=== PATIENT | male | born 1980 | race Caucasian/White ===

== ENCOUNTER 2019-03-20 11:22 | Emergency (ER) | payer OTHER | END 2019-03-20 13:15 | disposition home or self-care (01) | LOC: FER 11:22 ==

== ENCOUNTER 2023-09-25 12:53 | Emergency (ER) | payer OTHER ==
[2023-09-25 13:02] VITALS: RESP 16; BMI 29.0
[2023-09-25] MEDS ORDERED: guaiFENesin 200 MG/10 ML 10 ML UNIT-DOSE CUPS PO ONE (13:19)
[2023-09-25] MEDS ORDERED: IBUPROFEN 600 MG TABLET (FP) PO ONE ×2 (13:19→13:33)
[2023-09-25] MEDS ORDERED: guaiFENesin/D-METHORPHAN HB 10 ML UNIT-DOSE CUPS ONE (13:33)
[2023-09-25 14:18] VITALS: BP 127/83; PULSE 82; TEMP 99.3
[2023-09-25 15:28] LABS: THROAT:GRP A STREP NOT DETECTED (NOTDETECTED)
== END 2023-09-25 14:50 | disposition home or self-care (01) ==
LOC: FER 12:53
DX: R09.81 Nasal congestion (principal); R05.9 Cough, unspecified; R50.9 Fever, unspecified; M79.10 Myalgia, unspecified site; J06.9 Acute upper respiratory infection, unspecified; J10.1 Influenza due to other identified influenza virus with other respiratory manifestations; Z20.822 Contact with and (suspected) exposure to COVID-19
CPT/HCPCS: 0241U-QW; 87651; 99283-25

== ENCOUNTER 2024-12-01 13:42 | Emergency (ER) | payer OTHER ==
[2024-12-01 13:49] VITALS: BP 130/87; PULSE 75; RESP 18; TEMP 98.6; BMI 30.7
[2024-12-01] MEDS ORDERED: KETOROLAC TROMETHAMINE 30 MG/1 ML VIAL ONE (14:31)
[2024-12-01] MEDS: KETOROLAC TROMETHAMINE 30 MG/1 ML VIAL IM ONE (14:35)
== END 2024-12-01 14:41 | disposition home or self-care (01) ==
LOC: FER 13:42
PROC: 3E0233Z Introduction of Anti-inflammatory into Muscle, Percutaneous Approach (ICD-10-PCS; principal; 2024-12-01)
DX: M25.511 Pain in right shoulder (principal); X50.1XXA Overexertion from prolonged static or awkward postures, initial encounter
CPT/HCPCS: 99284-25

== ENCOUNTER 2025-08-07 00:12 | Emergency (ER) | payer SELFPAY ==
[2025-08-07 00:22] VITALS: BMI 30.2
[2025-08-07] MEDS ORDERED: ACETAMINOPHEN 500 MG TABLET (FP) ONE (01:11)
[2025-08-07] MEDS ORDERED: MECLIZINE HCL 25 MG TABLET (FP) ONE (01:11)
[2025-08-07] MEDS: MECLIZINE HCL 25 MG TABLET (FP) PO ONE (01:13)
[2025-08-07] MEDS: ACETAMINOPHEN 500 MG TABLET (FP) PO ONE (01:14)
[2025-08-07 01:43] VITALS: BP 118/77; TEMP 98.4
[2025-08-07 02:35] VITALS: PULSE 81; RESP 15
== END 2025-08-07 02:41 | disposition home or self-care (01) ==
LOC: JER 00:12
DX: S00.31XA Abrasion of nose, initial encounter (principal); Y00.XXXA Assault by blunt object, initial encounter
CPT/HCPCS: 70450-TC; 70486-TC; 99284-25